=== PATIENT | female | born 1975 | race Caucasian/White ===

== ENCOUNTER 2021-04-24 13:49 | Emergency (ER) | payer MEDICAID, OTHER ==
[2021-04-24] MEDS ORDERED: NS IV 1000 ML 1,000 ML IV SCH (14:15)
[2021-04-24] MEDS ORDERED: FAMOTIDINE 20MG/2ML IV (PEPCID) IVP ONE (14:15)
[2021-04-24] MEDS ORDERED: ONDANSETRON 4 MG/2 ML (SDV) Z0FRAN IVP ONE (14:15)
[2021-04-24] MEDS ORDERED: LORazepam INJ 2 MG/ML (ATIVAN) VIAL IVP ONE (14:15)
[2021-04-24 14:22] LABS: HEMATOCRIT 25 % (35-52); HEMOGLOBIN 7.4 G/DL (11.5-16.0); MEAN CORPUSCULAR HEMOGLOBIN 23 PG (25-34); MEAN CORPUSCULAR HGB CONC 30 G/DL (32-36); MEAN CORPUSCULAR VOLUME 76 FL (80-99); WHITE BLOOD COUNT 5.9 10^3/uL (4.3-11.0)
[2021-04-24 14:23] LABS: BASOPHILS # (AUTO) 0.2 10^3/uL (0.0-0.1); BASOPHILS % (AUTO) 3 % (0-10); EOSINOPHILS # (AUTO) 0.1 10^3/uL (0.0-0.3); EOSINOPHILS % (AUTO) 2 % (0-10); LYMPHOCYTES # (AUTO) 1.5 X 10^3 (1.0-4.0); LYMPHOCYTES % (AUTO) 25 % (12-44); MEAN PLATELET VOLUME 9.4 FL (7.4-10.4); MONOCYTES # (AUTO) 0.6 X 10^3 (0.0-1.0); MONOCYTES % (AUTO) 11 % (0-12); NEUTROPHILS # (AUTO) 3.5 X 10^3 (1.8-7.8); NEUTROPHILS % (AUTO) 59 % (42-75); PLATELET COUNT 172 10^3/uL (130-400)
[2021-04-24 14:36] LABS: ALANINE AMINOTRANSFERASE 35 U/L (0-55); ALBUMIN 3.5 GM/DL (3.2-4.5); ALKALINE PHOSPHATASE 399 U/L (40-136); BILIRUBIN,TOTAL 1.7 MG/DL (0.1-1.0); BUN/CREATININE RATIO 7; CALCIUM 8.5 MG/DL (8.5-10.1); CARBON DIOXIDE 26 MMOL/L (21-32); CHLORIDE 99 MMOL/L (98-107); CREATININE SERUM 0.43 MG/DL (0.60-1.30); GFR ESTIMATED 160; GLUCOSE 104 MG/DL (70-105); MAGNESIUM 1.8 MG/DL (1.6-2.4); POTASSIUM 3.4 MMOL/L (3.6-5.0); SODIUM 139 MMOL/L (135-145); TOTAL PROTEIN 8.3 GM/DL (6.4-8.2)
--- NOTE | 2021-04-24 14:51 | ED General ---
General Chief Complaint: Substance Abuse Stated Complaint: WEAK|VOMITING|CONFUSION|EXCESSIVE VAGINAL BLEEDING Nursing Triage Note: Patient states she usually drinks 18 shots of whiskey daily. One week ago her started limiting her to 6-8 shots daily. She started feeling sick at that point. Has worsened over past two days and is having weakness, confusion, nausea, vomiting, diarrhea. No fevers or cough. Also states she has had to receive blood transfusions in the past for her heavy periods. Last blood transfusion in November. Source of Information: Patient Exam Limitations: No Limitations History of Present Illness Date Seen by Provider: Apr 24, 2021 Time Seen by Provider: 14:00 Initial Comments Patient is a 45-year-old female with a longstanding history of alcohol abuse presents with alcohol intoxication. Patient states she is currently visiting from out of state and staying with her who is in the area on work assignment. She states she drinks on average 18 alcoholic beverages daily, but has tried to wean herself down to 6 drinks daily over the past few days. States she has feelings of anxiousness, anxiety and tremors when she decreases her drinking. She denies chest pain palpitations or history of withdrawal seizure, but has experienced hallucinations in the past. She reports other longstanding medical problems including heavy menstrual periods which have caused her to require blood transfusions in the past. She denies coingestants or drug use. She denies paranoia, delusions, suicidal homicidal ideation. She is not currently enrolled in any outpatient support program. Her last sober. Of significance was 3 months ago. No other acute symptoms or complaints. Timing/Duration: 1/2 Hour, 5-6 Days, Intermittent, Other Severity: Mild, Moderate Modifying Factors: improves with Other Associated Systoms: Other Allergies and Home Medications Allergies Coded Allergies: No Known Drug Allergies (Unverified , 04/24/21) Patient Home Medication List Home Medication List Reviewed: Yes Review of Systems Review of Systems Constitutional: see HPI EENTM: see HPI Respiratory: see HPI Cardiovascular: see HPI Gastrointestinal: see HPI Genitourinary: see HPI Skin: see HPI Psychiatric/Neurological: See HPI Hematologic/Lymphatic: See HPI Immunological/Allergic: see HPI All Other Systems Reviewed Negative Unless Noted: Yes Past Mxhvfan-Lqwihb-Mennsu Hx Patient Social History Tobacco Use?: No Smoking Status: Never a Smoker Substance use?: Yes Substance type: Marijuana Alcohol Use?: Yes Alcohol type: Hard Liquor Alcohol Frequency: Daily Pt feels they are or have been: No Physical Exam Vital Signs Vital Signs - First Documented 04/24/21 14:09 Temp 36.4 Pulse 90 Resp 16 B/P (MAP) 115/67 (83) Pulse Ox 97 Capillary Refill : Height, Weight, BMI Height: '" Weight: lbs. oz. kg; BMI Method: General Appearance: No Apparent Distress, WD/WN, Anxious (Slurred speech, smells of EtOH intoxicants), Other Eyes: Bilateral Eye Normal Inspection, Bilateral Eye PERRL, Bilateral Eye EOMI, Bilateral Eye Other (Conjunctiva injected) HEENT: PERRL/EOMI, Normal ENT Inspection, Pharynx Normal Neck: Non Tender, Supple Respiratory: Lungs Clear, Normal Breath Sounds Gastrointestinal: Non Tender, Soft Extremity: Normal Capillary Refill, Normal Inspection Skin: Normal Color Focused Exam Sepsis Stage: Ruled Out Progress/Results/Core Measures Suspected Sepsis SIRS Temperature: Pulse: 90 Respiratory Rate: 16 Laboratory Tests 04/24/21 14:14: White Blood Count 5.9 Blood Pressure 115 /67 Mean: 83 Laboratory Tests 04/24/21 14:14: Creatinine 0.43L, Platelet Count 172, Total Bilirubin 1.7H Results/Orders Lab Results Laboratory Tests Test 04/24/21 00:00 04/24/21 14:14 Range/Units White Blood Count 5.9 4.3-11.0 10^3/uL Red Blood Count 3.26 L 4.35-5.85 10^6/uL Hemoglobin 7.4 L 11.5-16.0 G/DL Hematocrit 25 L 35-52 % Mean Corpuscular Volume 76 L 80-99 FL Mean Corpuscular Hemoglobin 23 L 25-34 PG Mean Corpuscular Hemoglobin Concent 30 L 32-36 G/DL Red Cell Distribution Width 19.0 H 10.0-14.5 % Platelet Count 172 130-400 10^3/uL Mean Platelet Volume 9.4 7.4-10.4 FL Immature Granulocyte % (Auto) 1 % Neutrophils (%) (Auto) 59 42-75 % Lymphocytes (%) (Auto) 25 12-44 % Monocytes (%) (Auto) 11 0-12 % Eosinophils (%) (Auto) 2 0-10 % Basophils (%) (Auto) 3 0-10 % Neutrophils # (Auto) 3.5 1.8-7.8 X 10^3 Lymphocytes # (Auto) 1.5 1.0-4.0 X 10^3 Monocytes # (Auto) 0.6 0.0-1.0 X 10^3 Eosinophils # (Auto) 0.1 0.0-0.3 10^3/uL Basophils # (Auto) 0.2 H 0.0-0.1 10^3/uL Immature Granulocyte # (Auto) 0.0 0.0-0.1 10^3/uL Sodium Level 139 135-145 MMOL/L Potassium Level 3.4 L 3.6-5.0 MMOL/L Chloride Level 99 98-107 MMOL/L Carbon Dioxide Level 26 21-32 MMOL/L Anion Gap 14 5-14 MMOL/L Blood Urea Nitrogen 3 L 7-18 MG/DL Creatinine 0.43 L 0.60-1.30 MG/DL Estimat Glomerular Filtration Rate 160 BUN/Creatinine Ratio 7 Glucose Level 104 70-105 MG/DL Calcium Level 8.5 8.5-10.1 MG/DL Corrected Calcium 8.9 8.5-10.1 MG/DL Magnesium Level 1.8 1.6-2.4 MG/DL Total Bilirubin 1.7 H 0.1-1.0 MG/DL Aspartate Amino Transf (AST/SGOT) 168 H 5-34 U/L Alanine Aminotransferase (ALT/SGPT) 35 0-55 U/L Alkaline Phosphatase 399 H 40-136 U/L Troponin I < 0.30 <0.30 NG/ML Total Protein 8.3 H 6.4-8.2 GM/DL Albumin 3.5 3.2-4.5 GM/DL Serum Alcohol 411 *H <10 MG/DL My Orders Orders - MARGOT ALBERT DO Cbc With Automated Diff (04/24/21 14:09) Comprehensive Metabolic Panel (04/24/21 14:09) Troponin I Fs (04/24/21 14:09) Magnesium (04/24/21 14:09) Urine Bedside (04/24/21 14:09) Alcohol (04/24/21 14:09) Ekg-Prn For Chest Pain Or Rhyt (04/24/21 14:09) Drug Screen Stat (Urine) (04/24/21 14:09) Lorazepam Injection (Ativan Injection) (04/24/21 14:15) Famotidine Injection (Pepcid Injection) (04/24/21 14:15) Ns Iv 1000 Ml (Sodium Chloride 0.9%) (04/24/21 14:15) Ondansetron Injection (Zofran Injectio (04/24/21 14:15) Medications Given in ED Current Medications Medications Dose Ordered Sig/Edd Route Start Time Stop Time Status Last Admin Dose Admin Famotidine 20 mg ONCE ONCE IVP 04/24/21 14:15 04/24/21 14:16 DC 04/24/21 14:20 20 MG Lorazepam 2 mg ONCE ONCE IVP 04/24/21 14:15 04/24/21 14:16 DC 04/24/21 14:20 2 MG Ondansetron HCl 4 mg ONCE ONCE IVP 04/24/21 14:15 04/24/21 14:16 DC 04/24/21 14:20 4 MG Vital Signs/I&O 04/24/21 14:09 Temp 36.4 Pulse 90 Resp 16 B/P (MAP) 115/67 (83) Pulse Ox 97 Capillary Refill : Blood Pressure Mean: 83 Departure Communication (Admissions) Lab, reviewed. IV fluids, banana bag, and Ativan given. Patient clinically more stable with coherent fluent speech. Will discharge home to custody [facility] with instructions to follow-up with PCP. Recommendations are for coordinated outpatient detox. Return precautions reviewed. Patient and spouse verbalized understanding and agreement with discharge instructions prior to departure. Impression Primary Impression: Alcohol abuse with physiological dependence Disposition: 01 HOME, SELF-CARE Condition: Stable Admissions Time/Decision to Admit Time: 18:03 Departure-Patient Inst. Decision time for Depature: 18:08 Patient Instructions: ALCOHOL AND SUBSTANCE ABUSE Add. Discharge Instructions: Please go home and rest. Take newly prescribed medications as directed and follow-up with see [facility] for outpatient alcohol detox and rehab. Return to the ED if signs if new or worsening symptoms All discharge instructions reviewed with patient and/or family. Voiced unders tanding. Scripts Lorazepam (Ativan) 2 Mg Tablet 2 MG PO Q4H for Anxiety for 7 Days, #12 TAB Prov: MARGOT ALBERT DO 04/24/21 Famotidine (Pepcid) 20 Mg Tablet 20 MG PO BID, #20 TAB Prov: MARGOT ALBERT DO 04/24/21 Ondansetron (Ondansetron Odt) 4 Mg Tab.rapdis 4 MG PO Q6H, #10 TAB Prov: MARGOT ALBERT DO 04/24/21 MARGOT ALBERT DO Apr 24, 2021 14:51
[2021-04-24] MEDS ORDERED: ONDA4TAB11 PO ×2 (18:10→18:18)
[2021-04-24] MEDS ORDERED: FAMO-119 PO ×2 (18:10→18:18)
[2021-04-24] MEDS ORDERED: LORA-407 PO ×2 (18:10→18:18)
[2021-04-24 18:24] VITALS: BP 91/64
== END 2021-04-24 18:20 | disposition home or self-care (01) ==
LOC: ER FS 13:54
DX: F10.229 Alcohol dependence with intoxication, unspecified (principal); Y90.8 Blood alcohol level of 240 mg/100 ml or more
CPT/HCPCS: 80053; 83735; 84484; 99284; G0480; 80320

== ENCOUNTER 2021-05-06 19:29 | Emergency (ER) | payer MEDICAID ==
[~2021-05-06] VITALS: Ht 160 cm; Wt 68.0 kg
[~2021-05-06 19:29] MED LIST: FAMO-119 PO; LORA-407 PO; ONDA4TAB11 PO
[2021-05-06] MEDS ORDERED: ONDANSETRON 4 MG/2 ML (SDV) Z0FRAN IVP ONE (20:00)
--- NOTE | 2021-05-06 20:12 | ED GI ---
General Chief Complaint: Abdominal/GI Problems Stated Complaint: WEAK;DIZZY;PUKING BLOOD Nursing Triage Note: PT AMBULATE TO ROOM FS01 WITH C/O VOMITING BLOOD X1. PT REPORTS THAT SHE HAS BEEN VOMITING FREQUENTLY. PT REPORTS HX OF ALCOHOLISM AND DRANK TODAY. PT STATES SHE USES ETOH TO MAKE HER FEEL BETTER. PT STATES THAT SHE HAS HAD HER MENSTRUAL CYCLE X3 THIS MONTH. Source of Information: Patient Exam Limitations: No Limitations History of Present Illness Date Seen by Provider: May 06, 2021 Time Seen by Provider: 19:50 Initial Comments 45-year-old female with past medical history of alcohol use disorder with liver disease per the patient coming in due to an episode of vomiting with with a small amount of blood in the vomit at the end. She states that she has nausea and vomiting most days of the week and this has been going on for months. She had retching multiple times today. During the last episode she states there was a blood clot about the size of a quarter that came out as well. No black large amount of emesis. She had a normal bowel movement this morning without any black or bloody stools. Just some mild abdominal cramping that is intermittent and she associates it with the vomiting. Denies any fever, chest pain, shortness of breath, focal weakness or numbness, or any other concerns. She states she is very anemic all the time because she has very long periods. Most recent period was over 10 days with heavy bleeding the majority of the time. She has never seen a industrial truck mechanic for this. She states she has received blood transfusions in the past related to her menstruation. In regards to her liver disease, she states she was told by her family practice physician that she has liver disease. She drinks roughly 10 shots of liquor per day and has been doing this for decades. She had an upper and lower scope done in August and was told at that time she had no disease including no esophageal varices. She denies any history of upper or lower GI bleeds. She does not take any blood thinners. Her last drink was this morning. She denies any symptoms of with drawal at this time. She is otherwise denying any other acute complaints. Allergies and Home Medications Allergies Coded Allergies: No Known Drug Allergies (Unverified , 04/24/21) Home Medications Famotidine 20 Mg Tablet, 20 MG PO BID Prescribed by: MARGOT ALBERT on 04/24/211809 Famotidine 20 Mg Tablet, 20 MG PO BID Prescribed by: MARGOT ALBERT on 04/24/211817 Lorazepam 2 Mg Tablet, 2 MG PO Q4H Prescribed by: MARGOT ALBERT on 04/24/211809 Lorazepam 2 Mg Tablet, 2 MG PO Q4H Prescribed by: MARGOT ALBERT on 04/24/211818 Ondansetron 4 Mg Tab.rapdis, 4 MG PO Q6H Prescribed by: MARGOT ALBERT on 04/24/211809 Ondansetron 4 Mg Tab.rapdis, 4 MG PO Q6H Prescribed by: MARGOT ALBERT on 04/24/211817 Patient Home Medication List Home Medication List Reviewed: Yes Review of Systems Review of Systems Constitutional: no symptoms reported; No dizziness, No fever EENTM: No Symptoms Reported; No Throat Pain Respiratory: Denies Cough, Denies Shortness of Air Cardiovascular: Denies Chest Pain Gastrointestinal: Denies Abdominal Pain, Denies Diarrhea; Nausea, Vomiting Genitourinary: Denies Burning Musculoskeletal: No back pain Skin: No rash Psychiatric/Neurological: Denies Anxiety, Denies Depressed Endocrine: No Symptoms Reported Hematologic/Lymphatic: No Symptoms Reported All Other Systems Reviewed Negative Unless Noted: Yes Past Ljqszed-Szmxad-Wmigbw Hx Patient Social History Tobacco Use?: No Smoking Status: Never a Smoker Substance use?: No Alcohol Use?: Yes Alcohol type: Hard Liquor Alcohol Frequency: Daily Pt feels they are or have been: No Past Medical History Surgeries: No Family Medical History No Pertinent Family Hx Physical Exam Vital Signs Vital Signs - First Documented 05/06/21 19:39 Temp 36.6 Pulse 114 Resp 18 B/P (MAP) 123/81 (95) O2 Delivery Room Air Capillary Refill : Less Than 3 Seconds Height/Weight/BMI Height: '" Weight: lbs. oz. kg; 26.00 BMI Method: General Appearance: WD/WN, no apparent distress, other (Appears jaundiced with some scleral icterus) HEENT: PERRL/EOMI, normal ENT inspection, pharynx normal Neck: non-tender, full range of motion, supple Respiratory: chest non-tender, lungs clear, normal breath sounds, no respiratory distress, no accessory muscle use Cardiovascular: regular rate, rhythm, no murmur Gastrointestinal: normal bowel sounds, non tender, soft; No distended, No guarding, No rebound; other (No ascites felt on exam) Rectal: normal exam, normal rectal tone, heme negative stool, hemorrhoids Extremities: normal range of motion, non-tender, normal inspection, no pedal edema Back: normal inspection Neurologic/Psychiatric: no motor/sensory deficits, alert, normal mood/affect, oriented x 3 Skin: normal color, warm/dry, other (Telangiectasias on the upper chest) Lymphatic: no adenopathy Progress/Results/Core Measures Results/Orders Lab Results Laboratory Tests Test 05/06/21 20:07 05/06/21 20:17 Range/Units Urine Color ORANGE Urine Clarity CLOUDY H Urine pH 6.5 5-9 Urine Specific [place] 1.025 H 1.016-1.022 Urine Protein 1+ H NEGATIVE Urine Glucose (UA) NEGATIVE NEGATIVE Urine Ketones 3+ H NEGATIVE Urine Nitrite NEGATIVE NEGATIVE Urine Bilirubin 3+ H NEGATIVE Urine Urobilinogen 4.0 < = 1.0 MG/DL Urine Leukocyte Esterase 1+ H NEGATIVE Urine RBC (Auto) TRACE H NEGATIVE Urine RBC 0-2 /HPF Urine WBC 25-50 H /HPF Urine Squamous Epithelial Cells 25-50 H /HPF Urine Crystals NONE /LPF Urine Bacteria MODERATE H /HPF Urine Casts NONE /LPF Urine Mucus LARGE H /LPF Urine Culture Indicated YES White Blood Count 10.3 4.3-11.0 10^3/uL Red Blood Count 2.80 L 4.35-5.85 10^6/uL Hemoglobin 6.2 *L 11.5-16.0 G/DL Hematocrit 21 L 35-52 % Mean Corpuscular Volume 75 L 80-99 FL Mean Corpuscular Hemoglobin 22 L 25-34 PG Mean Corpuscular Hemoglobin Concent 30 L 32-36 G/DL Red Cell Distribution Width 19.8 H 10.0-14.5 % Platelet Count 140 130-400 10^3/uL Mean Platelet Volume 9.9 7.4-10.4 FL Immature Granulocyte % (Auto) 1 % Neutrophils (%) (Auto) 74 42-75 % Lymphocytes (%) (Auto) 17 12-44 % Monocytes (%) (Auto) 7 0-12 % Eosinophils (%) (Auto) 0 0-10 % Basophils (%) (Auto) 1 0-10 % Neutrophils # (Auto) 7.6 1.8-7.8 X 10^3 Lymphocytes # (Auto) 1.7 1.0-4.0 X 10^3 Monocytes # (Auto) 0.7 0.0-1.0 X 10^3 Eosinophils # (Auto) 0.0 0.0-0.3 10^3/uL Basophils # (Auto) 0.1 0.0-0.1 10^3/uL Immature Granulocyte # (Auto) 0.1 0.0-0.1 10^3/uL Prothrombin Time 16.5 H 12.2-14.7 SEC INR Comment 1.3 0.8-1.4 Activated Partial Thromboplast Time 39 H 24-35 SEC Sodium Level 135 135-145 MMOL/L Potassium Level 3.5 L 3.6-5.0 MMOL/L Chloride Level 96 L 98-107 MMOL/L Carbon Dioxide Level 21 21-32 MMOL/L Anion Gap 18 H 5-14 MMOL/L Blood Urea Nitrogen 5 L 7-18 MG/DL Creatinine 0.35 L 0.60-1.30 MG/DL Estimat Glomerular Filtration Rate 203 BUN/Creatinine Ratio 14 Glucose Level 78 70-105 MG/DL Calcium Level 8.2 L 8.5-10.1 MG/DL Corrected Calcium 9.1 8.5-10.1 MG/DL Total Bilirubin 5.2 H 0.1-1.0 MG/DL Aspartate Amino Transf (AST/SGOT) 191 H 5-34 U/L Alanine Aminotransferase (ALT/SGPT) 41 0-55 U/L Alkaline Phosphatase 461 H 40-136 U/L Total Protein 7.9 6.4-8.2 GM/DL Albumin 2.9 L 3.2-4.5 GM/DL Lipase 219 H 8-78 U/L Serum Test, Qualitative NEGATIVE NEGATIVE Serum Alcohol 205 H <10 MG/DL My Orders Orders - ISELA NGO MD Comprehensive Metabolic Panel (05/06/21 19:53) Lipase (05/06/21 19:53) Ua Culture If Indicated (05/06/21 19:53) Hcg,Qualitative Serum (05/06/21 19:53) Ed Iv/Invasive Line Start (05/06/21 19:53) Cbc With Automated Diff (05/06/21 19:53) Ondansetron Injection (Zofran Injectio (05/06/21 20:00) Hepatitis Panel Acute (05/06/21 19:53) Protime With Inr (05/06/21 19:53) Partial Thromboplastin Time (05/06/21 19:53) Type And Screen (05/06/21 19:53) Alcohol (05/06/21 19:53) Lorazepam Tablet (Ativan Tablet) (05/06/21 20:20) Ceftriaxone (Rocephin) (05/06/21 21:00) Pantoprazole Injection (Protonix Injecti (05/06/21 21:00) Urine Culture (05/06/21 20:07) Medications Given in ED Current Medications Medications Dose Ordered Sig/Edd Route Start Time Stop Time Status Last Admin Dose Admin Ceftriaxone Sodium 1000 mg/ Sterile Water 10 ml @ 200 mls/hr ONCE ONCE IV 05/06/21 21:00 05/06/21 21:02 DC 05/06/21 21:22 200 MLS/HR Ondansetron HCl 4 mg ONCE ONCE IVP 05/06/21 20:00 05/06/21 20:01 DC 05/06/21 20:04 4 MG Pantoprazole 40 mg ONCE ONCE IV 05/06/21 21:00 05/06/21 21:01 DC 05/06/21 21:22 40 MG Vital Signs/I&O 05/06/21 19:39 Temp 36.6 Pulse 114 Resp 18 B/P (MAP) 123/81 (95) O2 Delivery Room Air Blood Pressure Mean: 95 Progress Progress Note : Progress Note 45-year-old female with above history coming in due to an episode of vomiting with a quarter sized blood clot. ABCs were intact and vitals were stable on presentation although she is mildly tachycardic around 100. She does appear to have stigmata of liver disease including telangiectasias on her upper chest, scleral icterus, and some jaundice. This fits clinically with her saying she drinks heavily for a couple decades. She does not have any ascites on exam and has mild abdominal tenderness. Basic labs including coagulation studies and hepatic profile sent. Hemoglobin is 6.2. The patient has not had any active hematemesis here, and blood pressure is around 120 systolic. Heart rate is around 100. We have 1 unit of blood available in this facility, and to use this judiciously we will hold off unless she becomes unstable. Given her significant concern for liver disease and upper GI bleed is definitely on the differential. She was given ceftriaxone as well as Protonix empirically. I contacted the surgeon combination technician Dr. Dawn at 16:45 who would be willing to scope if needed but does not have ability to band esophageal varices if present. Given my concern for her liver disease with her hematemsis, I believe it is best to transfer her to a higher level of care with a GI specialist available. She was given IV Zofran for nausea. 20:53 called [facility] for [facility], and they are at capacity not accepting transfers. 20:55 called [facility], both at capacity, not accepting transfers. 21:00 contacted [facility] and they accepted. Patient willing to transfer to this hospital as well. Dr. Almanza is the accepting physician. We continue to monitor the patient and EMS arrived at 22:06. Blood pressure at that time was 120s over 80s. I believe she is stable for ground transport as she has not had any active hematemesis since being in our emergency department. At the time of transfer she was in stable condition. Departure Impression Primary Impression: GI bleed Qualified Codes: K92.2 - Gastrointestinal hemorrhage, unspecified Additional Impressions: Liver disease Alcohol use disorder Disposition: XFER SHT-TRM HOSP Condition: Stable Transfer Transfer Reason: Exceeds level of care Time Spoke to Accepting Phy: 21:00 Transfer Progress Notes Needs transfer for higher level of care with GI specialist given concern for GI bleed with liver disease. Transfer Time: 22:06 Transfer Facility: [facility] in [place], [place] Method of Transfer: EMS Departure-Patient Inst. Referrals: NO,LOCAL PHYSICIAN (PCP/Family) Primary Care Physician ISELA NGO MD May 06, 2021 20:12
[2021-05-06] MEDS ORDERED: LORazepam 0.5 MG (ATIVAN) TABLET PO STA (20:20)
[2021-05-06 20:34] LABS: WHITE BLOOD COUNT 10.3 10^3/uL (4.3-11.0)
[2021-05-06 20:35] LABS: BASOPHILS # (AUTO) 0.1 10^3/uL (0.0-0.1); BASOPHILS % (AUTO) 1 % (0-10); EOSINOPHILS % (AUTO) 0 % (0-10); LYMPHOCYTES # (AUTO) 1.7 X 10^3 (1.0-4.0); LYMPHOCYTES % (AUTO) 17 % (12-44); MEAN CORPUSCULAR HEMOGLOBIN 22 PG (25-34); MEAN CORPUSCULAR HGB CONC 30 G/DL (32-36); MEAN CORPUSCULAR VOLUME 75 FL (80-99); MEAN PLATELET VOLUME 9.9 FL (7.4-10.4); MONOCYTES # (AUTO) 0.7 X 10^3 (0.0-1.0); MONOCYTES % (AUTO) 7 % (0-12); NEUTROPHILS # (AUTO) 7.6 X 10^3 (1.8-7.8); NEUTROPHILS % (AUTO) 74 % (42-75); PLATELET COUNT 140 10^3/uL (130-400)
[2021-05-06 20:36] LABS: HEMATOCRIT 21 % (35-52); HEMOGLOBIN 6.2 G/DL (11.5-16.0)
[2021-05-06 20:41] LABS: INR 1.3 (0.8-1.4); PROTHROMBIN TIME PATIENT 16.5 SEC (12.2-14.7)
[2021-05-06 20:49] LABS: COLOR,URINE ORANGE
[2021-05-06 20:50] LABS: CLARITY,URINE CLOUDY; GLUCOSE, URINE (UA) NEGATIVE (NEGATIVE); KETONES,URINE 3+ (NEGATIVE); NITRITE,URINE NEGATIVE (NEGATIVE); PH,URINE 6.5 (5-9); PROTEIN,URINE 1+ (NEGATIVE)
[2021-05-06 20:51] LABS: BACTERIA,URINE MODERATE /HPF; BILIRUBIN,URINE 3+ (NEGATIVE); LEUKOCYTE ESTERASE ,URINE 1+ (NEGATIVE); RBC,URINE 0-2 /HPF; SQUAMOUS EPITHELIAL CELL,UR 25-50 /HPF; WBC,URINE 25-50 /HPF
[2021-05-06 20:53] LABS: CALCIUM 8.2 MG/DL (8.5-10.1); CREATININE SERUM 0.35 MG/DL (0.60-1.30); POTASSIUM 3.5 MMOL/L (3.6-5.0)
[2021-05-06 20:54] LABS: ALBUMIN 2.9 GM/DL (3.2-4.5); BILIRUBIN,TOTAL 5.2 MG/DL (0.1-1.0); TOTAL PROTEIN 7.9 GM/DL (6.4-8.2)
[2021-05-06] MEDS ORDERED: cefTRIAXone 1,000 MG in WATER (STERILE) FOR INJECTION 10 ML IV ONE (21:00)
[2021-05-06] MEDS ORDERED: PANTOPRAZOLE 40 MG (PROTONIX) VIAL IV ONE (21:00)
[2021-05-06 22:05] VITALS: BP 128/71
[2021-05-08 00:46] LABS: HEPATITIS C ANTIBODY C Non-Reactive (Non-Reactive)
--- OUTSIDE RECORDS SUMMARY | 2021-05-09 10:04 | XMS REPORT | Clinical Summary ---
Author Author On License Of [facility] ity Organization [facility] ity Address Unknown Phone Unavailable Care Team Providers Care Elementary Reading Tutor Name Role Phone PP Unavailable Allergies Not on File Medications Not on file Active Problems Not on file Social History Date Tobacco Use Types Packs/Day Years Used Never Assessed Sex Assigned at Date Recorded Not on file Plan of Treatment Not on file Results Not on filefrom Last 3 Months
== END 2021-05-06 22:05 | disposition short-term general hospital (02) ==
LOC: EDUNIT# 19:29 → ER FS 19:30
DX: K92.2 Gastrointestinal hemorrhage, unspecified (principal); K76.9 Liver disease, unspecified; Z72.89 Other problems related to lifestyle
CPT/HCPCS: 36415; 80053; 80074; 81000; 83690; 84703; 85025; 85610; 85730; 86850; 86900; 86901; 87088; 99284; G0480; 80320